=== PATIENT | female | born 2000 | race Caucasian/White ===

== ENCOUNTER → 2024-05-15 | Outpatient (REF) | payer BC | LOC: M PLALAB 10:48 | PROVIDERS: ATTEND Advanced Practice Midwife | DX: Z53.9 Procedure and treatment not carried out, unspecified reason (principal) ==

== ENCOUNTER 2024-05-22 07:54 | Day surgery (SDC) | payer BC ==
[~2024-05-22] VITALS: Ht 170.2 cm; Wt 69.9 kg
[~2024-05-22 07:54] MED LIST: SERT50TA29 PO
[2024-05-22] MEDS ORDERED: LR 1,000 ML IV SCH ×2 (08:00→11:35)
[2024-05-22] MEDS: NS (Normal Saline) 0.9% 1,000 ML IV SCH (08:57)
[2024-05-22] MEDS: ONDANSETRON 4MG 2ML VIAL IV ONE (09:12)
[2024-05-22] MEDS ORDERED: propofoL 200 MG/20 ML VIAL As Ordered ONE (09:50)
[2024-05-22] MEDS ORDERED: fentaNYL 100 MCG/2 ML INJECTION As Ordered ONE (09:50)
[2024-05-22] MEDS ORDERED: MIDAZOLAM INJ 2MG/2ML VIAL As Ordered ONE (09:51)
[2024-05-22] MEDS ORDERED: ONDANSETRON 4MG 2ML VIAL As Ordered ONE (09:52)
[2024-05-22] MEDS ORDERED: ROCURONIUM BROMIDE 50MG/5ML VIAL As Ordered ONE (09:52)
[2024-05-22] MEDS ORDERED: LIDOCAINE 2% 100MG/5ML SDV (FOR ANES.) As Ordered ONE (09:52)
[2024-05-22] MEDS ORDERED: ACETAMINOPHEN 1000MG/100ML IV BAG As Ordered ONE (09:52)
[2024-05-22] MEDS ORDERED: KETOROLAC 60MG 2ML VIAL As Ordered ONE (10:01)
[2024-05-22 10:16] LABS: HEMATOCRIT 35.1 % (36.0-47.0); HEMOGLOBIN 12.2 g/dl (12.0-15.5); MEAN CORPUSCULAR HGB CONC 34.8 g/dl (32.0-36.5); MEAN CORPUSCULAR VOLUME 89.3 fl (80.0-96.0); PLATELET COUNT, AUTOMATED 272 10^3/uL (150-450); RED BLOOD COUNT 3.93 10^6/uL (4.00-5.40); WHITE BLOOD COUNT 11.5 10^3/uL (4.0-10.0)
[2024-05-22] MEDS: LIDOCAINE 1% SDV 30ML VIAL As Ordered ONE (10:43)
[2024-05-22] MEDS: METHYLERGONOVINE MALEATE 0.2MG/ML 1ML VIAL As Ordered ONE (11:00)
[2024-05-22] MEDS ORDERED: oxyCODONE 5MG TAB PO PRN (11:15)
[2024-05-22] MEDS ORDERED: fentaNYL 100 MCG/2 ML INJECTION IV PRN (11:15)
[2024-05-22] MEDS ORDERED: ONDANSETRON 4MG 2ML VIAL IV PRN (11:15)
[2024-05-22] MEDS ORDERED: ACETAMINOPHEN 500 MG TAB PO ONE (11:35)
[2024-05-22] MEDS: DOXYCYCLINE HYCLATE 100MG TABLET PO ONE (11:41)
[2024-05-22 12:26] VITALS: BP 126/88; TEMP 97; O2SAT 100
== END 2024-05-22 12:27 | disposition home or self-care (01) ==
LOC: M SDC 07:54
PROVIDERS: ATTEND Specialist
DX: O02.1 Missed abortion (principal); F41.9 Anxiety disorder, unspecified; Z79.899 Other long term (current) drug therapy; F17.290 Nicotine dependence, other tobacco product, uncomplicated
CPT/HCPCS: 36415; 59821; 85027; 86850; 86900; 86901; 88262; 88300; 88305; J0131; J1100; J1885; J2250; J2405; J3010; S0191

== ENCOUNTER 2024-06-19 00:32 | Emergency (ER) | payer BC ==
[~2024-06-19] VITALS: Ht 170.2 cm; Wt 74.4 kg
[2024-06-19] MEDS ORDERED: ELINTAB (00:44)
[2024-06-19 03:44] VITALS: BP 142/92; TEMP 98.3
[2024-06-19 05:05] VITALS: O2SAT 95
[2024-06-19] MEDS: ANEXSIA, NORCO 7.5MG/325MG TABLET(HYDROCODONE/APAP) PO ONE (05:05)
[2024-06-19] MEDS: NORCO 5/325MG TABLET (HOME DOSE PACK) PO ONE (06:32)
== END 2024-06-19 06:38 | disposition home or self-care (01) ==
LOC: M ED 00:32
DX: S00.83XA Contusion of other part of head, initial encounter (principal); S80.02XA Contusion of left knee, initial encounter; Y04.0XXA Assault by unarmed brawl or fight, initial encounter; F41.9 Anxiety disorder, unspecified; F10.10 Alcohol abuse, uncomplicated; Y92.009 Unspecified place in unspecified non-institutional (private) residence as the place of occurrence of the external cause; Y93.89 Activity, other specified; Y99.9 Unspecified external cause status; Z79.899 Other long term (current) drug therapy